=== PATIENT | male | born 1980 | race Caucasian/White ===

== ENCOUNTER 2017-01-13 13:00 | Inpatient (IN) | payer OTHER ==
[~2017-01-13] VITALS: Ht 182.9 cm; Wt 115.2 kg
--- NOTE | ~2017-01-13 | PA ---
Unit #: [id number] #: [id number] Patient: THEODORA DOHERTY [id number] [facility] [address] [place] [address] [id number] MR#: [id number] NAME: THEODORA DOHERTY. ROOM: P207 Age: 36 Sex: M Admission Date: 01/13/2017 : 1980 Date of Assessment: 01/14/2017 Attending Physician: Julito Fisher M.D. Admitting Physician: Julito Fisher M.D. Primary Care Physician: Generic Doctor Not In System PSYCHIATRIC ASSESSMENT IDENTIFYING INFORMATION The patient is a 36-year-old white male who was admitted to the [address] [place] [address] with suicidal ideation and increasing alcohol use. INFORMANT Patient RELIABILITY Fair. CHIEF COMPLAINT None given. HISTORY OF PRESENT ILLNESS The patient is a 36-year-old white male admitted to the [address] [place] [address] after he had presented to this facility voicing positive suicidal ideation and increasing alcohol use. CHIEF COMPLAINT None given. INFORMANT Patient. RELIABILITY Good. HISTORY OF PRESENT ILLNESS The patient is a 36-year-old white male who is admitted to the [address] [place] [address] with increasing alcohol use. The patient reports that he is drinking 1.75 liters of hard liquor on a daily basis. He just got out of [facility] in [place] on 01/11/2017 where detox did take place. However, the patient had a recurrence of suicidal ideation with a plan to use a shotgun to shoot himself and was brought to this facility by family members with whom he is currently living. The patient reports a history of two previous terminal worker chemical dependence treatment courses the last of which occurred earlier this year in [facility]. The patient reports that he was able to maintain sobriety for about four months. The patient was started on Revia at [facility]. The patient continues to endorse hopelessness and suicidal ideation. The patient reports that he was previously a "successful defensive managing attorney" but because of his substance use has "lost everything." The patient has because of his drinking lost his professional career, his home and his Unit #: [id number] #: [id number] Patient: THEODORA DOHERTY marriage. He has an eight year son with whom he has little contact. PAST PSYCHIATRIC HISTORY As above. PAST MEDICAL HISTORY Significant for a history of type two diabetes and some mild peripheral neuropathy. The patient also suffers from hypertension. MEDICATIONS 1. Amlodipine 2. Prozac 3. Metformin 4. Metroprolol 5. Naltrexone 6. Trazodone 7. Geodon 8. Bupropion ALLERGIES None. FAMILY HISTORY Noncontributory. SOCIAL HISTORY The patient is currently living with his parents. He is a graduate with [employer] but is not presently practicing though he has not lost his license. The patient reports substance use as noted previously and is a smoker. MENTAL STATUS EXAMINATION At this time reveals the patient to be an obese white male, appearing his stated age. He is in no apparent physical distress at the time of examination. He is awake, alert, and oriented in all spheres. His mood is mildly dysphoric. His affect blunted. Speech is generally relevant and coherent. There are no gross deficits in memory or cognition noted. Intelligence is judged to be in the average range based on fund of knowledge. The patient is cooperative throughout the interview. He continues to endorse positive suicidal ideation. He denies homicidal ideation. He denies any psychotic symptoms. His judgement and insight appear to be reasonably intact. Patient's assets motivation for change, supportive family. Liabilities ongoing substance use ADMITTING DIAGNOSES 1. Alcohol use disorder. 2. Dysthymic disorder. 3. Diabetes mellitus. 4. Diabetic peripheral neuropathy 5. Hypertension. PSYCHIATRIC PLAN/TREATMENT GOALS The patient remains hospitalized for safety and stabilization. We will continue previously prescribed psychotropic medications including Geodon and Wellbutrin. I will add Campral to the patient's current medication regimen and we will consider administration of a Vivitrol injection prior to discharge. Unit #: [id number] #: [id number] Patient: THEODORA DOHERTY ESTIMATED LENGTH OF STAY Three to five days with followup to take place through the auspices of [facility]. Dictated by... Julito Fisher M.D. CB/kalen TD: 01/15/2017 02:15 JOB #: [id number] PSYCHIATRIC ASSESSMENT Page 1 of 1 X Julito Fisher MD X PSYCHIATRIC ASSESSMENT
--- NOTE | ~2017-01-13 | PN ---
Unit #: [id number] #: [id number] Patient: THEODORA DOHERTY [id number] [facility] [address] [place] [address] [id number] I MR#: [id number] NAME: THEODORA DOHERTY. ROOM: P207 Age: 36 Sex: M Admission Date: 01/13/2017 : 1980 Attending Physician: Julito Fisher M.D. Admitting Physician: Jultio Fisher M.D. Primary Care Physician: Billy Doctor Not In System [facility] PROGRESS NOTES DATE 01/17/2017 DISCUSSION The patient continues to complain of daytme sedation. 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 Whatever the case, we continue current treatment. I will discontinue his daytime dose of Geodon, and anticipate a.m. discharge. Dictated by... Julito Fisher M.D. CB/brandon TD: 01/17/2017 14:39 JOB #: [id number] [facility] PROGRESS NOTES Page 1 of 1 X Julito Fisher MD X PROGRESS NOTE
--- NOTE | ~2017-01-13 | HP ---
Unit #: [id number] #: [id number] Patient: THEODORA DOHERTY [id number] [place] [address] [id number] I MR#: [id number] NAME: THEODORA DOHERTY. ROOM: P207 Age: 36 Sex: M Admission Date: 01/13/2017 : 1980 Attending Physician: Julito Fisher M.D. Admitting Physician: Julito Fisher M.D. Primary Care Physician: Generic Doctor Not In System HISTORY AND PHYSICAL HISTORY OF PRESENT ILLNESS Theodora is a 36 year old admitted to [address] [place] [address] with depression after an alleged suicide attempt. He was released from [facility] on 01/11/17. PAST MEDICAL HISTORY 1. High blood pressure. 2. Diabetes mellitus. 3. Morbid obesity. 4. Obstructive sleep apnea. PAST SURGICAL HISTORY Nothing reported. ALLERGIES No known drug allergies. SOCIAL HISTORY Smokes one pack per day. Drinks alcohol frequently. Denies illicit drug use. FAMILY HISTORY Medically noncontributory. REVIEW OF SYSTEMS CONSTITUTIONAL: No fever or chills. HEENT: Denies any sore throat, ear pain or runny nose. CARDIOVASCULAR: Denies chest pain, irregular heart rhythm or palpitations. CHEST: Denies shortness of breath or cough. No hemoptysis. GASTROINTESTINAL: Denies nausea, vomiting, diarrhea or chronic constipation. ENDOCRINE: Denies history of increased thirst or urination. No recent significant weight loss or gain. GENITOURINARY: Denies dysuria, frequency, or hematuria. SKIN: Denies any rashes. HEMATOLOGIC: Denies history of increased bleeding or bruising. MUSCULOSKELETAL: Denies any hot, swollen joints. No generalized muscle pain. NEUROLOGIC: Denies problems with vision or speech. No frequent, severe headaches. No numbness, tingling or weakness in any extremities. Denies loss of bladder or bowel control. Unit #: [id number] #: [id number] Patient: THEODORA DOHERTY CURRENT MEDICATIONS 1. Detox protocol 2. Geodon 80 mg q.h.s. 3. Desyrel 100 mg q.h.s. 4. Lopressor 25 mg b.i.d. 5. Milk of Magnesia p.r.n. 6. Maalox p.r.n. 7. Tylenol p.r.n. 8. Glucophage 500 mg b.i.d. 9. Wellbutrin 300 mg q day 10. Revia 50 mg q day 11. Prozac 20 mg q day 12. Norvasc 5 mg q day 13. Nicotine patch 21 mg q day PHYSICAL EXAMINATION GENERAL: Alert, morbidly obese, in no apparent distress. VITAL SIGNS: Blood pressure 128/76, heart rate 70, respirations 16, temperature 98.6. WEIGHT: 254 pounds. HEIGHT: 6'0". SKIN: Warm and dry without rash or lesion. HEENT: Normocephalic. TMs not viewed. Oral and nasal passages clear. Conjunctivae clear. Pupils equal, round and reactive to light and accommodation. Extraocular movements intact. NECK: Supple without lymphadenopathy or thyromegaly. HEART: Regular rate and rhythm without murmur. LUNGS: Clear. ABDOMEN: Soft, nontender. : Not done. EXTREMITIES: No evidence of cyanosis, clubbing or edema. Moves all extremities without focal deficit. NEUROLOGICAL: Grossly within normal limits. Cranial Nerves: II: Visual tejada are intact. III, IV AND : Extraocular movements are intact. Pupils are equal, round and reactive to light. V: Facial sensation is grossly normal. VII: Facial movements and expression are normal. VIII: Auditory acuity grossly intact. IX, X: Uvula is midline. Phonation is normal. XI: Patient shrugs shoulders and turns head normally. XII: Tongue protrudes in the midline. Sensory and Motor Function: Sensory and motor sensation is grossly normal. Motor: moves all extremities well. Coordination: Gait is normal. Deep Tendon Reflexes: Intact. IMPRESSION Psychiatric admission RECOMMENDATIONS PSYCHIATRIC: Per psychiatrist. MEDICAL: I see no contraindications to participating in facility's activities. MEDICAL PROGNOSIS Good. MEDICAL CONDITION Stable. Unit #: [id number] #: [id number] Patient: THEODORA DOHERTY Dictated by... Sherrie Louis P.A.-C. for Carmina Le/kalen TD: 01/15/2017 00:15 JOB #: [id number] HISTORY AND PHYSICAL Page 1 of 1 X Sherrie Louis HISTORY AND PHYSICAL
--- NOTE | ~2017-01-13 | DS ---
Unit #: [id number] #: [id number] Patient: THEODORA DOHERTY [id number] [place] [address] [id number] MR#: [id number] NAME: THEODORA DOHERTY. ROOM: P207 Age: 36 Sex: M Admission Date: 01/13/2017 : 1980 Discharge Date: 01/19/2017 Attending Physician: Julito Fisher M.D. Primary Care Physician: Billy Doctor Not In System DISCHARGE SUMMARY REASON FOR ADMISSION The patient is a 36-year-old white male, admitted with increasing depressed mood, suicidal ideation, and alcohol use. HOSPITAL COURSE The patient was admitted to the [address] [place] [address] unit and placed on routine detoxification protocol for alcohol. He was continued on previously prescribed medications including Wellbutrin, Geodon, trazodone, naltrexone, metoprolol, metformin, Prozac, and amlodipine. He was begun on Campral 333 mg two tablets t.i.d. daily. The patient did complain of some daytime sedation and his a.m. dose of Geodon was discontinued. He seemed to improve with that discontinuation. His mood brightened considerably as his stay in the hospital progressed and by 01/19/2017, arrangements have been made for discharge with the patient to continue in the dual track intensive outpatient program provided by this facility. As per his request, discharge was ordered on that date in the absence of suicidal ideation. FINAL DIAGNOSES Alcohol use disorder, dysthymic disorder. Hypertension, morbid obesity, and diabetes mellitus. DISPOSITION ON DISCHARGE The patient is discharged on the following medications: Campral 333 mg two tablets t.i.d. for alcohol craving, Wellbutrin XL 300 mg daily for depression, ziprasidone 80 mg at bedtime for mood stabilization, naltrexone 50 mg at bedtime for alcohol craving, Desyrel 100 mg at h.s. p.r.n. insomnia, Lopressor 25 mg daily for hypertension, Glucophage 500 mg b.i.d. before meals for diabetic management, Prozac 20 mg daily for depression, and Norvasc 5 mg daily for hypertension. DISCHARGE INSTRUCTIONS No dietary or physical restrictions were placed on the patient at the time of discharge. FOLLOWUP Followup will take place through the auspices of the dual track chemical dependency treatment program provided by this facility. PROGNOSIS The patient's prognosis is considered fair, but will course be darkened considerably should he continue to abuse alcohol. Unit #: [id number] #: [id number] Patient: THEODORA DOHERTY Dictated by..Jordyn Fisher M.D. CB/rose TD: 01/20/2017 11:36 JOB #: [id number] DISCHARGE SUMMARY Page 1 of 1 X Julito Fisher MD X DISCHARGE SUMMARY
--- NOTE | ~2017-01-13 | PN ---
Unit #: [id number] #: [id number] Patient: THEODORA DOHERTY [id number] [facility] [address] [place] [address] [id number] MR#: [id number] NAME: THEODORA DOHERTY ROOM: P207 Age: 36 Sex: M Admission Date: 01/13/2017 : 1980 Attending Physician: Julito Fisher M.D. Admitting Physician: Julito Fisher M.D. Primary Care Physician: Billy Doctor Not In System [facility] PROGRESS NOTES DATE 01/16/2017 DISCUSSION The patient is abed and complaining of extreme sedation when seen today. I have explained to him this is probably due to the medications he is receiving for detox, and that the symptoms should not be permanent. He is looking into residential chemical dependence treatment. Dictated by... Julito Fisher M.D. CB/brandon TD: 01/16/2017 14:07 JOB #: [id number] [facility] PROGRESS NOTES Page 1 of 1 X Julito Fisher MD PROGRESS NOTE
--- NOTE | ~2017-01-13 | PN ---
Unit #: [id number] #: [id number] Patient: THEODORA DOHERTY [id number] [facility] [address] [place] [address] [id number] I MR#: [id number] NAME: THEODORA DOHERTY ROOM: P207 Age: 36 Sex: M Admission Date: 01/13/2017 : 1980 Attending Physician: Julito Fisher M.D. Admitting Physician: Julito Fisher M.D. Primary Care Physician: Billy Doctor Not In System [facility] PROGRESS NOTES DATE 01/18/2017 DISCUSSION The patient continues to complain of daytime sedation. I will go ahead and discontinue the patient's a.m. dose of Geodon, but it is possible that the patient complains of sedation secondary to Campral which may need to be discontinued. Dictated by... Julito Fisher M.D. CB/bzg TD: 01/18/2017 14:39 JOB #: [id number] [facility] PROGRESS NOTES Page 1 of 1 X Julito Fisher MD X PROGRESS NOTE
[2017-01-14 10:40] LABS: URINE APPEARANCE CLEAR; URINE BILIRUBIN NEG (NEG); URINE BLOOD NEG (NEG); URINE COLOR YELLOW; URINE GLUCOSE NEG (NEG); URINE KETONE NEG (NEG); URINE LEUKOCYTE ESTERASE TRACE (NEG); URINE NITRATE NEG (NEG); URINE PROTEIN NEG (NEG); URINE SPECIFIC GRAVITY 1.018 (1.003-1.035)
[2017-01-14 10:44] LABS: U HYALINE CASTS AUWI 0-2 /[LPF]; URBCS1 AUWI 0-2 /[HPF] (0-2); URINE BACTERIA AUWI NEG (NEGATIVE); URINE SQUAMOUS EPITHELIAL CELL NONE SEEN /[HPF]
[2017-01-14 10:53] LABS: AMPHETAMINE NEG (NEG); BARBITURATES NEG (NEG); BENZODIAZEPINES POS (NEG); COCAINE NEG (NEG); MARIJUANA NEG (NEG); OPIATES NEG (NEG); TRICYCLIC ANTIDEPRESSANTS NEG (NEG); U METHADONE NEG (NEG)
[2017-01-14 10:58] LABS: BASOPHIL% 0.4 % (0-2.5); EOSINOPHIL# 0.2 X10e3 (0-0.7); EOSINOPHIL% 2.5 % (0.0-7.0); HEMATOCRIT 47.6 % (38.0-50.0); HEMOGLOBIN 15.7 gm/dL (13.0-16.0); LYMPHOCYTE# 2.5 X10e3 (1.0-3.5); LYMPHOCYTE% 32.4 % (17.0-45.0); MEAN CELL VOLUME 84.6 FL (83-96); MEAN CORPUSCULAR HEMOGLOBIN 27.9 PG (28-34); MEAN PLATELET VOLUME 10.5 FL (6.5-11.5); MONOCYTE# 0.9 X10e3 (0-1.0); MONOCYTE% 11.7 % (3.0-12.0); PLATELET COUNT 83 X10e3 (140-420); RED BLOOD COUNT 5.62 X10e (3.90-5.60); RED CELL DISTRIBUTION WIDTH 14.5 % (11.0-15.5); WHITE BLOOD COUNT 7.6 X10e3 (4.0-10.5)
[2017-01-14 11:12] LABS: ALBUMIN SERUM 4.2 g/dL (3.5-5.0); BILIRUBIN,TOTAL 1.8 mg/dL (0.2-2.0); CALCIUM SERUM 9.3 mg/dL (8.4-10.2); CREATININE SERUM 0.8 mg/dL (0.6-1.4); POTASSIUM 3.9 mmol/L (3.5-5.1)
[2017-01-14 12:32] LABS: DIFF IND YES
[2017-01-14 12:34] LABS: ANISOCYTOSIS SL; PLATELET ESTIMATE DECREASED (NORMAL)
== END 2017-01-19 13:41 | disposition home or self-care (01) | DRG 897 ==
LOC: P2S 15:22 → POF 15:22 → P2S 15:26
PROVIDERS: Specialist
PROC: HZ2ZZZZ Detoxification Services for Substance Abuse Treatment (ICD-10-PCS; principal; 2017-01-13)
DX: F10.10 Alcohol abuse, uncomplicated (principal); R45.851 Suicidal ideations; E11.42 Type 2 diabetes mellitus with diabetic polyneuropathy; F34.1 Dysthymic disorder; I10 Essential (primary) hypertension; F17.210 Nicotine dependence, cigarettes, uncomplicated; E66.01 Morbid (severe) obesity due to excess calories; Z68.34 Body mass index [BMI] 34.0-34.9, adult
CPT/HCPCS: 80053; 80307; 81003; 85025; 86592